=== PATIENT | male | born 1970 | race Caucasian/White ===

== ENCOUNTER 2016-10-10 12:39 | Emergency (ER) | payer BC ==
[~2016-10-10] VITALS: Ht 180.3 cm; Wt 79.4 kg
[2016-10-10 12:44] VITALS: Ht 180.3 cm; Wt 79.4 kg
[2016-10-10] MEDS ORDERED: IBUPROFEN 600 MG TAB PO STA (13:48)
[2016-10-10] MEDS ORDERED: OXYCODONE HCL IR 5 MG TAB (IMMEDIATE RELEASE) PO STA (13:48)
--- NOTE | 2016-10-10 14:29 | DIAGNOSTIC IMAGING REPORT ---
LUMBAR SPINE 5 VIEWS HISTORY: Pain LOW BACK PAIN RADIATING TO L GROIN COMPARISON: None. FINDINGS: There is no fracture. No subluxation. Disc spaces are preserved. IMPRESSION: No fracture or subluxation within the lumbar spine. Electronically signed by: Gilbert Arana M.D. 10/10/2016 2:28 PM Dictated Date/Time: 10/10/2016 2:21 PM
--- NOTE | 2016-10-10 15:59 | DIAGNOSTIC IMAGING REPORT ---
ABDOMEN AND PELVIS CT WITHOUT CONTRAST CT DOSE: 311.50 mGy.cm HISTORY: EVAL L SIDE PAIN TECHNIQUE: Multiaxial CT images of the abdomen and pelvis were performed without the use of intravenous and oral contrast according to the standard department stone protocol. COMPARISON STUDY: None. FINDINGS: Minimal dependent basilar atelectasis. Liver spleen and pancreas are unremarkable. Left kidney demonstrates a 2 mm nonobstructing calcification. There is no evidence for an obstructing urinary tract calculus. Bowel pattern is considered nonobstructive. Bladder is midline. There is no ureteral distention. Bowel pattern is considered nonobstructive. IMPRESSION: 1. Nonobstructing 2 mm left renal calcification. 2. No evidence for an obstructing urinary tract calculus. 3. Nonobstructive bowel pattern. 4. Normal appendix. Electronically signed by: Gilbert Arana M.D. 10/10/2016 3:57 PM Dictated Date/Time: 10/10/2016 3:50 PM
[2016-10-10] MEDS ORDERED: OXYC1TAB3 PO (16:44)
[2016-10-10] MEDS ORDERED: CYCL10TA6 PO (16:44)
[2016-10-10] MEDS ORDERED: IBUP-1451 PO (16:44)
[2016-10-10] MEDS ORDERED: PRED20TA PO (16:44)
--- NOTE | 2016-10-10 16:45 | EMERGENCY ROOM VISIT NOTE ---
ED Visit Note First contact with patient: 13:11 CHIEF COMPLAINT: Low back pain 2 weeks HISTORY OF PRESENT ILLNESS: Patient is a 46-year-old white male who presents emergency department for evaluation of low back pain 2 weeks. He reports pain in the midline of his low back, more on the left than the right. He is most uncomfortable when sitting. He states the pain started about 2 weeks ago and was getting a little bit better, but then they moved this weekend and he was doing a lot of heavy lifting and now things are worse. He feels better when he stands or when he lays. Pain is worse with movement, it including bending over. He tried ibuprofen and heat. He reports a remote history of disc herniation for which she underwent epidural steroid injections, but that was many years ago. He states the pain radiates into his buttocks, and around the left groin. He feels some discomfort in the left testicle. He denies any penile or testicular pain, redness or swelling. No penile discharge. No urinary symptoms or hematuria. He denies any bowel or bladder incontinence. He has a remote history of kidney stones, but states that this does not feel similar. He denies any numbness, tingling or weakness into the left lower extremity. He denies any anterior abdominal pain, nausea or vomiting. REVIEW OF SYSTEMS: Review of systems as per HPI. All other systems reviewed were negative. At least 6 systems reviewed. PMH: Electronic medical records are reviewed and summarized as above/below. See Problem List. SOCIAL HISTORY: Patient lives at home with his girlfriend. Smokes one pack of cigarettes daily, drinks alcohol. Works in a [employer] factory. PHYSICAL EXAM: Vital Signs: Reviewed Nurse's notes. CONSTITUTIONAL: Patient is an uncomfortable-appearing 46-year-old white male who is awake and alert and laying supine on the gurney in mild distress due to back pain. He has discomfort with position changes. EYES: Pupils equal, round, reactive to light and accommodation. EOMs intact without nystagmus. Sclera are anicteric. ENT: Tympanic membranes intact, with normal landmarks. External canals are clear. Oral and nasopharynx are clear. Mucous membranes are moist, no lesions , tongue and gums appear normal. CARDIOVASCULAR: Regular rate and rhythm, with normal S1 and S2, no murmur or gallop or rub is heard. No carotid bruits auscultated. No JVD. Peripheral pulses easy to palpable. RESPIRATORY: Breath sounds equal and clear to auscultation without wheezes, rales, or rhonchi heard. Full and equal chest expansion without accessory muscle use or retractions. GI: Bowel sounds are present. Abdomen is soft, nontender, nondistended. No organomegaly. No pulsatile masses. No guarding or rebound. No CVA tenderness. : Normal appearing circumcised penis. No scrotal erythema. No testicular swelling. Right testicle is nontender to palpation, no masses appreciated. No penile swelling or lesions. No discharge noted. No hernias appreciated. No inguinal lymphadenopathy. MUSCULOSKELETAL: Full range of motion of extremities x 4 with good strength. No cyanosis, edema, joint tenderness or swelling. No deformity. INTEGUMENTARY: No lesions or rash, normal skin turgor. NEUROLOGICAL: Alert, oriented, and cooperative. Cranial nerves, sensation and strength grossly intact. Lower extremity DTRs are equal and symmetrical bilaterally. LYMPH: No lymphadenopathy. SPINE : Tenderness in the left paraspinous muscles in the lumbar area. No tenderness over the spinous processes of the lumbar vertebrae. He does also have some discomfort over the SI joint and the sciatic notch. He has discomfort with flexion, rotation and lateral bending. LEGS: Normal strength including dorsi-flexion and plantar flexion of the great toes and ankles, flexion and extension of the knees and flexion of the hips. Negative bilateral straight leg raising, normal and symmetrical knee and ankle reflexes. EMERGENCY DEPARTMENT COURSE: The patient was seen and examined as above. Urine sample was collected, dipped and was clean without signs of blood or infection. Lumbar spine x-rays were obtained and were essentially unremarkable. Given his history of kidney stones however, and his intermittent back and flank pain, I did discuss performing a CT with the patient and he was in agreement. He had a small, 2 mm calculus in the left kidney, no ureteral or bladder calculi noted. No other acute findings in the abdomen or the pelvis. The patient's pain does appear to be musculoskeletal in nature, could be related to his prior history of degenerative disc disease. Patient was medicated with oxycodone, prednisone and ibuprofen in the emergency department, with some relief. He does not have any physical exam findings to indicate acute cord compression or cauda equina syndrome at this time. Differential diagnoses also entertained included UTI, pyelonephritis, renal colic, shingles, testicular torsion, epididymitis, prostatitis, musculoskeletal back pain, among others. The patient was discharged on prednisone, ibuprofen, Flexeril and oxycodone. He was encouraged to follow-up with his primary care provider for further care and management of his back pain. Patient was reviewed in the [facility] Prescription Drug Monitoring Program, and there were no red flags noted. Patient was discharged with his who was driving. He rated his discomfort a 2/10 at discharge. LUMBAR SPINE 5 VIEWS HISTORY: Pain LOW BACK PAIN RADIATING TO L GROIN COMPARISON: None. FINDINGS: There is no fracture. No subluxation. Disc spaces are preserved. IMPRESSION: No fracture or subluxation within the lumbar spine. ABDOMEN AND PELVIS CT WITHOUT CONTRAST CT DOSE: 311.50 mGy.cm HISTORY: EVAL L SIDE PAIN TECHNIQUE: Multiaxial CT images of the abdomen and pelvis were performed without the use of intravenous and oral contrast according to the standard department stone protocol. COMPARISON STUDY: None. FINDINGS: Minimal dependent basilar atelectasis. Liver spleen and pancreas are unremarkable. Left kidney demonstrates a 2 mm nonobstructing calcification. There is no evidence for an obstructing urinary tract calculus. Bowel pattern is considered nonobstructive. Bladder is midline. There is no ureteral distention. Bowel pattern is considered nonobstructive. IMPRESSION: 1. Nonobstructing 2 mm left renal calcification. 2. No evidence for an obstructing urinary tract calculus. 3. Nonobstructive bowel pattern. 4. Normal appendix. Problem List Medical Problems: (1) Kidney stone Status: Resolved (2) Lumbar disc disease Status: Chronic Surgical Problems: (1) History of facial surgery Status: Resolved Current/Historical Medications Scheduled Prednisone (Prednisone), 0 PO DAILY Scheduled PRN Cyclobenzaprine Hcl (Flexeril), 10 MG PO TID PRN for Muscle Spasms Ibuprofen Tab (Motrin), 800 MG PO TIDM PRN for Pain Oxycodone Immediate Rel Tab (Roxicodone Ir), 1-2 TAB PO Q4H PRN for Severe Pain Allergies Coded Allergies: No Known Allergies (Unverified , 10/10/16) Vital Signs Date Time Temp Pulse Resp B/P Pulse Ox O2 Delivery O2 Flow Rate FiO2 10/10/16 17:42 36.6 74 20 121/76 98 Room Air 10/10/16 17:41 36.6 78 18 147/86 98 10/10/16 12:44 36.6 78 18 147/86 98 Room Air Medications Administered Medications (Trade) Dose Ordered Sig/Andrea Route Start Time Stop Time Status Last Admin Dose Admin Ibuprofen (Motrin Tab) 600 mg NOW STAT PO 10/10/16 13:48 10/10/16 13:49 DC 10/10/16 13:55 600 MG Prednisone (PredniSONE TAB) 60 mg NOW STAT PO 10/10/16 13:48 10/10/16 13:49 DC 10/10/16 13:55 60 MG Oxycodone HCl (Roxicodone Immediate Rel Tab) 10 mg NOW STAT PO 10/10/16 13:48 10/10/16 13:49 DC 10/10/16 13:56 10 MG Departure Information Impression Primary Impression: Low back pain Prescriptions Ibuprofen Tab (MOTRIN) 800 Mg Tab 800 MG PO TIDM Y for Pain, #90 TAB Prov: Kanika Coleman PA 10/10/16 Prednisone (Prednisone) 20 Mg Tab 0 PO DAILY, #18 TAB 3 DAILY FOR 3 DAYS, THEN 2 DAILY FOR 3 DAYS, THEN 1 DAILY FOR 3 DAYS. Prov: Kanika Coleman PA 10/10/16 Oxycodone Immediate Rel Tab (ROXICODONE IR) 5 Mg Tab 1-2 TAB PO Q4H Y for Severe Pain, #20 TAB For Initial Treatment Prov: Kanika Coleman PA 10/10/16 Cyclobenzaprine Hcl (FLEXERIL) 10 Mg Tab 10 MG PO TID Y for Muscle Spasms, #21 TAB Prov: Kanika Coleman PA 10/10/16 Referrals No Doctor, Assigned (PCP) Patient Instructions [facility] Additional Instructions DO NOT drive, drink alcohol, operate machinery, or perform dangerous activities today. You were given medications in the ER that can affect your ability to safely function or operate a vehicle. Prednisone : Once daily until the prescription is finished. It is best to take this earlier in the day as some patients note occasional difficulty falling asleep when taken in the late evening. Oxycodone (OxyIR) 5mg: Take 1-2 pills every four hours for breakthrough pain. Avoid alcohol, operating machinery or dangerous equipment, working on ladders or roofs, DRIVING, or situations where being under the influence may be dangerous. It is recommended to use an [id number] stool softener such as Colace, 100mg twice daily while taking this medication to avoid constipation. Cyclobenzaprine (Flexeril) 10 mg: Take 1 pills 3 times daily as needed for muscle spasms.. Avoid alcohol, operating machinery or dangerous equipment, working on ladders or roofs, DRIVING, or situations where being under the influence may be dangerous. Ibuprofen(Motrin, Advil) may be used for fever or pain. Use 800 mg 3 times daily with food. Avoid using more than 2400mg in a 24 hour period. Do not use 2400mg per day for more than three consecutive days without physician direction. Prolonged inappropriate use can lead to stomach upset or ulcers. This medication can be taken if you need to drive, work, or perform activities which may be dangerous when taking narcotic pain medication. Acetaminophen(Tylenol) may be used for fever or pain. Use 1000mg every six hours as needed. Avoid using more than 3000mg in a 24 hour period. This medication can be taken if you need to drive, work, or perform activities which may be dangerous when taking narcotic pain medication. Rest and avoid heavy lifting until your symptoms resolve and then gradually return to full activity. A good rule of thumb is if it hurts your back to perform a certain activity, then it should be avoided until you are healthy again. A heating pad, warm compresses, or a hot shower may help with tight muscles and can be done several times a day as needed. Continue current medications. Return to the ER immediately for any numbness, tingling, severe pain, loss of control of your bowels or bladder, inability to walk, or as needed. Follow up with your primary care physician within 3-5 days for a recheck of your current condition. Problem Qualifiers Primary Impression: Low back pain Chronicity: acute Back pain laterality: left Sciatica presence: without sciatica Qualified Codes: M54.5 - Low back pain
[2016-10-10 17:42] VITALS: BP 121/76; PULSE 74; TEMP 36.6; O2SAT 98
== END 2016-10-10 17:42 | disposition home or self-care (01) ==
LOC: C.EDB 12:41 → C.EDD 17:42
DX: N20.0 Calculus of kidney (principal); M54.5 Low back pain; F17.200 Nicotine dependence, unspecified, uncomplicated; Z87.442 Personal history of urinary calculi; Z98.890 Other specified postprocedural states